=== PATIENT | female | born 1970 | race Caucasian/White ===

== ENCOUNTER → 2017-12-05 07:00 | Outpatient (CLI) | payer OTHER, SELFPAY | PROVIDERS: Visit Provider Nurse Practitioner Women's Health | DX: Z12.4 Encounter for screening for malignant neoplasm of cervix (principal) ==

== ENCOUNTER → 2017-12-22 15:05 | Outpatient (CLI) | payer OTHER, SELFPAY ==
--- NOTE | 2017-12-22 15:08 | BI_ITS ---
MAMMOGRAPHY - BILATERAL SCREENING REASON FOR EXAM: Female, 47 years old. Routine annual screening examination. PERTINENT HISTORY: Mother with breast cancer. TECHNIQUE: Digital bilateral breast claudia (3D mammographic acquisition) in the CC and MLO projections. 2-D mediolateral oblique (MLO) and craniocaudad (CC) views of both breasts were obtained. CAD: Full Field Digital Mammography with Computer Added Detection was performed. COMPARISON: Comparison is made with prior outside examination dated October 11, 2016. FINDINGS: Breast Composition: There are scattered areas of fibroglandular density. There are no dominant masses or suspicious calcifications. No other significant abnormalities are identified. There has been no significant change since the prior study. BI/SCREENING MAMM (CAD), BILAT IMPRESSION: Stable bilateral screening mammogram. Yearly follow-up mammogram recommended. (A) ASSESSMENT CATEGORY: BIRADS Category 1: Negative. A letter regarding these results will be sent to the patient by the facility within 30 days. Approximately 10% of breast cancers are not detected by mammography. A normal mammogram should not delay biopsy of a clinically suspicious abnormality. [id number] Electronically Signed: Konstantin Rogel MD at 8:32 EDT Tel [phone], Service support ,
== END ==
PROVIDERS: Family Provider Preventive Medicine Occupational Medicine; PCP Preventive Medicine Occupational Medicine; Visit Provider Nurse Practitioner Women's Health
DX: Z12.31 Encounter for screening mammogram for malignant neoplasm of breast (principal)
CPT/HCPCS: 77063; 77067

== ENCOUNTER → 2019-01-08 13:45 | Outpatient (CLI) | payer OTHER, SELFPAY ==
--- NOTE | 2019-01-08 13:48 | BI_ITS ---
MAMMOGRAPHY - BILATERAL SCREENING REASON FOR EXAM: Female, 48 years old. Routine annual screening examination. PERTINENT HISTORY: Mother with breast cancer. TECHNIQUE: Digital bilateral breast maria guadalupe (3D mammographic acquisition) in the CC and MLO projections. 2-D mediolateral oblique (MLO) and craniocaudad (CC) views of both breasts were obtained. CAD: Full Field Digital Mammography with Computer Added Detection was performed. COMPARISON: Comparison is made with prior study dated December 22, 2017. FINDINGS: Breast Composition: There are scattered areas of fibroglandular density. There are no dominant masses or suspicious calcifications. No other significant abnormalities are identified. There has been no significant change since the prior study. BI/SCREEN MAMM (CAD) W/MARIA GUADALUPE BILAT IMPRESSION: Stable bilateral screening mammogram. Yearly follow-up mammogram recommended. (A) ASSESSMENT CATEGORY: BIRADS Category 1: Negative. A letter regarding these results will be sent to the patient by the facility within 30 days. Approximately 10% of breast cancers are not detected by mammography. A normal mammogram should not delay biopsy of a clinically suspicious abnormality. [id number] Electronically Signed: Konstantin Rogel, at 15:02 EDT , Service support ,
== END ==
PROVIDERS: Family Provider Preventive Medicine Occupational Medicine; PCP Preventive Medicine Occupational Medicine; Referring Provider Nurse Practitioner Women's Health; Visit Provider Nurse Practitioner Women's Health
DX: Z12.31 Encounter for screening mammogram for malignant neoplasm of breast (principal); Z12.4 Encounter for screening for malignant neoplasm of cervix
CPT/HCPCS: 77063; 77067; 87624; 88175; G0145

== ENCOUNTER → 2020-01-30 08:31 | Outpatient (CLI) | payer OTHER, SELFPAY ==
[2019-01-08 14:12] VITALS: BMI 33.1
--- NOTE | 2020-01-30 08:31 | BI_ITS ---
MAMMOGRAPHY - BILATERAL SCREENING 3-D TOMOSYNTHESIS REASON FOR EXAM: Female, 49 years old. Routine screening PERTINENT HISTORY: FAM HX OF MOTHER @ AGE 60''S - NO PREV SURG''S. TECHNIQUE: 2-D mammograms and 3-D Tomosynthesis of the breast (s) were performed. CAD was performed. COMPARISON: 01/08/2019 FINDINGS: The breast composition is composed of scattered fibroglandular density. Scattered benign calcifications are seen. No dense spiculated masses or suspicious microcalcifications are identified. No architectural distortion is identified. There is no skin thickening or retraction. There has been no significant change since the prior study. BI/SCREEN MAMM (CAD) W/MARIA GUADALUPE BILAT IMPRESSION: No mammographic signs of malignancy. Routine yearly mammograms recommended. ASSESSMENT CATEGORY: BIRADS Category 1: Negative. A letter regarding these results will be sent to the patient by the facility within 30 days. FOLLOW UP RECOMMENDATION: Yearly follow up mammogram recommended. (A) Approximately 10% of breast cancers are not detected by mammography. A normal mammogram should not delay biopsy of a clinically suspicious abnormality. Electronically Signed: Azael Miranda MD at 10:03 EDT , Service support ,
[2020-02-05 21:51] LABS: HPV APTIMA, High Risk Positive (Negative)
== END ==
PROVIDERS: PCP Preventive Medicine Occupational Medicine; Referring Provider Nurse Practitioner Women's Health; Visit Provider Nurse Practitioner Women's Health
DX: Z12.31 Encounter for screening mammogram for malignant neoplasm of breast (principal); Z12.4 Encounter for screening for malignant neoplasm of cervix
CPT/HCPCS: 77063; 77067; 87624; 88175; G0145

== ENCOUNTER → 2021-02-01 10:39 | Outpatient (CLI) | payer OTHER, SELFPAY ==
[2020-03-17 15:04] VITALS: BMI 35.3
[2021-02-01 10:25] VITALS: BMI 36.1
--- NOTE | 2021-02-01 10:44 | BI_ITS ---
MAMMOGRAPHY - BILATERAL SCREENING REASON FOR EXAM: Female, 50 years old. Routine annual screening examination. PERTINENT HISTORY: Mother with breast cancer. TECHNIQUE: Digital bilateral breast maria guadalupe (3D mammographic acquisition) in the CC and MLO projections. 2-D mediolateral oblique (MLO) and craniocaudad (CC) views of both breasts were obtained. CAD: Full Field Digital Mammography with Computer Added Detection was performed. COMPARISON: Comparison is made with prior study of 01/30/2020 and 01/08/2019. FINDINGS: Breast Composition: There are scattered areas of fibroglandular density. There are no dominant masses or suspicious calcifications. Stable small benign appearing bilateral axillary nodes. No other significant abnormalities are identified. There has been no significant change since the prior study. BI/SCRN MAMM (CAD)W/MARIA GUADALUPE BILAT IMPRESSION: Stable bilateral screening mammogram. Yearly follow-up mammogram recommended. (A) ASSESSMENT CATEGORY: BIRADS Category 2: Benign. A letter regarding these results will be sent to the patient by the facility within 30 days. Approximately 10% of breast cancers are not detected by mammography. A normal mammogram should not delay biopsy of a clinically suspicious abnormality. [id number] Electronically Signed: Konstantin Rogel MD at 12:46 EDT , Service support ,
[2021-02-05 20:21] LABS: HPV APTIMA, High Risk Positive (Negative)
== END ==
PROVIDERS: PCP Preventive Medicine Occupational Medicine; Referring Provider Nurse Practitioner Women's Health; Visit Provider Nurse Practitioner Women's Health
DX: Z12.31 Encounter for screening mammogram for malignant neoplasm of breast (principal); Z12.4 Encounter for screening for malignant neoplasm of cervix
CPT/HCPCS: 77063; 77067; 87624; 88175; G0145

== ENCOUNTER → 2021-03-17 14:44 | Outpatient (CLI) | payer OTHER, SELFPAY ==
--- NOTE | 2021-03-17 | CER_PTH ---
PATIENT: NEHA MATIAS LOC: [facility] U#:[id number] AGE/SX: 55/F ROOM: RE03/17/[address]: Dr. Liza Westbrook MD : 1970 BED: DIS: SPEC #: [id number] RECD: 03/18/21 08:52 STATUS: MASHA VEE #: [id number] RACHEL: 03/17/21 00:[address]: Liza Westbrook DEPT: SURGICAL PATHOLOGY RECD BY: Luis Manuel Jordan ENTERED: 03/18/21 08:53 SP TYPE: CERV OTHR DR: Dr. Tima Medeiros DO Tissues: A - Uterine cervix, NOS B - Uterine cervix, NOS Procedures: Surgery Specimen Level IV HEADER OPERATION: Colposcopy PRE-OP DIAGNOSIS: LGSIL, HPV positive TISSUE SUBMITTED: Edith WESTFALL @ 10 o?clock MICROSCOPIC DIAGNOSIS A. Endocervix, curettings: Rare benign detached fragments of squamous mucosa. Rare strips of benign endocervix. B. Cervix at 10 o?clock, biopsy: Fibrinopurulent material present. See Comment. AM:am 03/19/21 COMMENT B. No squamous epithelium is present. Clinical correlation is suggested MICROSCOPIC DESCRIPTION Slides are reviewed. GROSS DESCRIPTION A. Received in formalin is one container labeled with the patient name and designated ECC. The specimen consists of light correia mucoid material measuring in aggregate 2 x 1 x <0.1cm. The specimen is totally submitted in one cassette. B .Received in formalin is one container labeled with the patient name and designated 10 o'clock. The specimen consists of light correia mucoid material measuring in aggregate 0.5 x 0.5 x <0.1cm. The specimen is totally submitted in one cassette. / AM:am 03/18/21 TC:5 CPT:[id number]
== END ==
PROVIDERS: PCP Preventive Medicine Occupational Medicine; Referring Provider Obstetrics & Gynecology; Visit Provider Obstetrics & Gynecology
DX: R87.612 Low grade squamous intraepithelial lesion on cytologic smear of cervix (LGSIL) (principal)
CPT/HCPCS: 88305

== ENCOUNTER → 2022-02-03 | Outpatient (CLI) | payer OTHER, SELFPAY ==
--- NOTE | 2022-02-03 07:27 | BI_ITS ---
MAMMOGRAPHY - BILATERAL SCREENING REASON FOR EXAM: Female, 52 years old. Routine annual screening examination. PERTINENT HISTORY: Mother with breast cancer. TECHNIQUE: Digital bilateral breast maria guadalupe (3D mammographic acquisition) in the CC and MLO projections. 2-D mediolateral oblique (MLO) and craniocaudad (CC) views of both breasts were obtained. CAD: Full Field Digital Mammography with Computer Added Detection was performed. COMPARISON: Comparison is made with prior study dated 02/01/2021 and 01/30/2020. FINDINGS: Breast Composition: There are scattered areas of fibroglandular density. There are no dominant masses or suspicious calcifications. Stable benign appearing bilateral axillary nodes. No other significant abnormalities are identified. There has been no significant change since the prior study. BI/SCRN MAMM (CAD)W/MARIA GUADALUPE BILAT IMPRESSION: Stable bilateral screening mammogram. Yearly follow-up mammogram recommended. (A) ASSESSMENT CATEGORY: BIRADS Category 2: Benign. A letter regarding these results will be sent to the patient by the facility within 30 days. Approximately 10% of breast cancers are not detected by mammography. A normal mammogram should not delay biopsy of a clinically suspicious abnormality. [id number] Electronically Signed: Konstantin Rogel MD at 8:22 EDT ,
[2022-02-03 09:03] LABS: Absolute Neutrophil Count 3.8 X10^3/uL (2.0-7.7); Basophil# 0.06 X10^3/uL; Eosinophil# 0.14 X10^3/uL; Eosinophils% 2.4 % (0-5); Hematocrit 40.2 % (37-47); Hemoglobin 13.5 g/dL (12.0-15.0); Lymphocyte % 23.8 % (19-41); Mean Corp Hgb Conc 33.6 g/dL (32-36); Mean Corpuscular Hgb 31.9 pg (27.0-32.0); Mean Platelet Vol. 9.6 fl (6.2-12.0); Monocyte# 0.44 X10^3/uL; Monocyte% 7.5 % (0-10); NRBC Flagged by Analyzer 0 % (0-5); Neutrophil # 3.84 X10^3/uL (2.7-7.7); Neutrophil % 65.1 % (47-70); Platelet Count 198 K/mm3 (150-450); RBC Distribution Width CV 13.1 % (11.6-14.6); RBC Distribution Width SD 45.7 fl (35.1-43.9); Red Blood Count 4.23 M/mm3 (4.2-5.4); White Blood Count 5.9 K/mm3 (4.4-11.0)
[2022-02-03 09:26] LABS: Vitamin D,25 Hydroxy 19.2 ng/mL
[2022-02-08 21:07] LABS: HPV Genotype 16, Aptima Negative (Negative)
[2022-02-08 21:50] LABS: HPV APTIMA, High Risk Positive (Negative); HPV Genotype 18,45 Aptima Negative (Negative)
== END | disposition home or self-care (01) ==
PROVIDERS: PCP Preventive Medicine Occupational Medicine; Referring Provider Obstetrics & Gynecology; Visit Provider Obstetrics & Gynecology
DX: Z12.31 Encounter for screening mammogram for malignant neoplasm of breast (principal); R53.83 Other fatigue; Z12.4 Encounter for screening for malignant neoplasm of cervix
CPT/HCPCS: 36415; 77063; 77067; 82306; 84443; 85025; 87624; 88175; G0145

== ENCOUNTER 2023-01-05 21:33 | Emergency (ER) | payer MEDICAID, SELFPAY ==
[2023-01-05 21:34] VITALS: BP 139/92; PULSE 84; RESP 16; TEMP 36.8; O2SAT 96; BMI 31.9
[2023-01-05] MEDS: Diphth,Pertuss(Acell),Tet Vac 0.5 ML Vial IM (22:46)
[2023-01-05] MEDS: Lidocaine/Epi/Tetracaine 50 ML 1 APPLIC TOPICAL (22:48)
--- NOTE | 2023-01-05 23:00 | RAD_ITS ---
STUDY: X-RAY - RIGHT CLAVICLE REASON FOR EXAM: Female, 52 years old. Injury/Pain TECHNIQUE: 2 view(s) of the clavicle. COMPARISON: FINDINGS: BONES: No fracture demonstrated. JOINTS: No dislocation. SOFT TISSUES: Unremarkable. RAD/Clavicle IMPRESSION: No evidence of fracture. Electronically Signed: Thi Casper MD at 23:26 EDT ,
--- NOTE | 2023-01-05 23:29 | EX.ED.GENINJ ---
HPI History of Present Illness Chief Complaint: Head Injury Informant: patient Onset/Context/Timing Onset: Today Mechanism/Context: Fall and Trip Quality of Pain: Dull Location: Forehead Worsened by: Nothing Relieved by: Nothing Narrative Narrative: Patient presents with a head injury that occurred today. Patient states she tripped and fell into the corner of a wall. Patient has a laceration across her forehead and into her eyebrow. Patient denies any loss of consciousness. Patient describes her pain as dull. Patient does not know when her last tetanus was. Patient denies any neck pain. Patient denies any other injuries. Patient denies any visual changes. Patient denies any nausea or vomiting. Patient denies any paresthesias or weakness. Tetanus Immunization: Unknown [facility] Medical History BRUCE I (cervical intraepithelial neoplasia I) LGSIL (low grade squamous intraepithelial dysplasia) Home Medications valsartan 160 mg tablet 160 mg PO DAILY 01/30/20 [History Last Taken Unknown] sertraline 100 mg tablet (Zoloft) 100 mg PO DAILY 10/13/20 [History Last Taken Unknown] norethindrone (contraceptive) 0.35 mg tablet (Deblitane) See Rx Instructions .Route .COMPLEX #84 tabs 08/26/22 [Rx Last Taken Unknown] Allergy/AdvReac Type Severity Reaction Status Date / Time amoxicillin Allergy Mild Other Verified 01/05/23 21:37 Family History Mother Breast cancer Father Cancer lung- smoker Surgical History H/O sinus surgery History of appendectomy History of loop electrosurgical excision procedure (LEEP) of cervix Social History Smoking Status: Heavy Smoker (>10/day) alcohol intake: current details: social substance use type: does not use caffeine: Yes what type of physical activity do you participate in: none seatbelt use: always do you feel safe at home: Yes additional social history: Single- D&S Distribution ROS ROS ED Constitutional Constitutional ED: Denies chills or fever(s) Eyes Eyes: Denies blurry vision or change in vision ENT ENT ED: Denies rhinorrhea or sore throat Cardiovascular Cardiovascular: Denies chest pain or palpitations Respiratory/Chest Respiratory/Chest: Denies cough or dyspnea Gastrointestinal Gastrointestinal: Denies nausea or vomiting Genitourinary Genitourinary ED: Denies dysuria or hematuria Musculoskeletal Musculoskeletal: Denies back pain or neck pain Integumentary Denies abscess or rash Neurologic Neurologic: Denies headache(s) or weakness Allergic/Immunologic Allergic/Immunologic ED: Denies mouth swelling or urticaria EXAM Physical Exam Const Vital Signs: 01/05/23 21:34 01/05/23 21:45 Temperature 98.3 F Temperature Source Temporal Pulse Rate 84 Respiratory Rate 16 Respiratory Effort Normal Respiratory Depth Normal Respiratory Pattern Normal Blood Pressure 139/92 H Blood Pressure Mean 107 Pulse Ox 96 Oxygen Delivery Method Room Air Room Air Positive well nourished and well developed General Appearance ED: well developed and NAD HEENT HEENT Narrative: There is an 7 cm full-thickness linear laceration over the forehead and right eyebrow area. There is moderate gapping of the wound margins. There is no bony crepitance or step-off. There are no foreign bodies noted. There is mild bleeding noted. trauma Eyes PERRL and EOMs intact bilaterally Neck full ROM Extremity normal to inspection and full ROM Extremity Narrative: There is mild tenderness over the right clavicle. There is no edema or ecchymosis. There is no bony crepitance or step-off. Range of motion of the right shoulder was limited in all motions secondary to pain. General Extremety ED: Negative for deformity General Extremity: Negative for deformity Neuro oriented x3, CN's II-XII intact bilaterally, moves all extremities, no focal motor deficits and no sensory deficits noted [place] Coma Scale: document GCS findings Spontaneous Obeys Commands Oriented 15 Sensorium / Orientation: alert Motor Exam: strength 5/5 throughout Psych mental status grossly normal PROC Procedures Lacerations Forehead: Length: 7 cm Depth: Sub Q Shape: Linear Prep: Sterile Conditions and Chlorhexadine Laceration repair: Local, Skin sutures (17), Subcutaneous sutures (5) and Wound explored Irrigated (ml): 100 Number of Sutures/[place]: 22 Suture Information: Vicryl (5 subcutaneous simple 5-0 Vicryl), Ethilon (17 simple interrupted 5-0 Ethilon), Simple and 5-0 MDM MDM MDM Narrative Medical decision making narrative: Differential diagnosis includes closed head injury, forehead laceration, concussion, and clavicle fracture. X-rays of the right clavicle will be obtained to assess for clavicle fracture. Radiography Diagnostic Testing: Clinical Impression(s) from Imaging Studies Clavicle X-Ray 01/05/23 23:00 IMPRESSION: No evidence of fracture. Electronically Signed: Thi Casper MD at 23:26 EDT , X-rays of the right clavicle were obtained. There are 2 views. On my independent interpretation, there is no acute fracture or dislocation. Radiologist also interpreted the x-rays and agrees. Treatment and Re-Evaluation Narrative: LET gel was applied to the wound. The wound was cleaned and irrigated with copious amounts of normal saline. The wound was anesthetized with 1% lidocaine with epinephrine locally. The wound was closed with 5 simple interrupted #5-0 Vicryl subcutaneous sutures and 17 simple interrupted #5-0 Ethilon sutures under sterile technique. Patient tolerated the procedure well. Bacitracin dressing was applied. Patient was given head injury instructions. Patient was given wound care instructions. Patient was instructed to keep the wound clean and dry. Patient was instructed to follow-up with her primary care physician in 7 days for wound recheck and suture removal. Discharge Plan Triage Chief Complaint: Head Injury ED Provider: Nic Whitfield Dx/Rx/DC Orders Clinical Impression: Closed head injury, Forehead laceration Instructions: ED Head Injury (Adult), ED FACIAL LACERATION Suture Tape, ED Laceration Minimize Scars Prescriptions: No Action valsartan 160 mg tablet 160 mg PO DAILY sertraline [Zoloft] 100 mg tablet 100 mg PO DAILY norethindrone (contraceptive) [Deblitane] 0.35 mg tablet See Rx Instructions .ROUTE .COMPLEX Qty: 84 11RF Dose Instruction: TAKE 1 TABLET BY MOUTH DAILY start day 1 (ONE) OF menstrual cycle Rx Instructions: TAKE 1 TABLET BY MOUTH DAILY start day 1 (ONE) OF menstrual cycle Primary Care Provider: Tima Medeiros Referrals: Tima Medeiros DO [Primary Care Provider] - 7 Days for suture removal Disposition Disposition: Home, Self Care
[2023-01-06] MEDS: Lidocaine 1% /Epi 1:100 (20ml) 20 ML Vial INFILT (01:10)
== END 2023-01-06 01:10 | disposition home or self-care (01) ==
PROVIDERS: Emergency Provider Emergency Medicine; PCP Preventive Medicine Occupational Medicine; Visit Provider Emergency Medicine
DX: S01.81XA Laceration without foreign body of other part of head, initial encounter (principal); F17.200 Nicotine dependence, unspecified, uncomplicated; Z23 Encounter for immunization; W01.0XXA Fall on same level from slipping, tripping and stumbling without subsequent striking against object, initial encounter
CPT/HCPCS: 12014; 73000; 90471; 90715; 99283

== ENCOUNTER 2023-01-13 10:26 | Emergency (ER) | payer MEDICAID, SELFPAY ==
[2023-01-13 10:27] VITALS: BP 120/85; PULSE 71; RESP 14; TEMP 36.6; O2SAT 98; BMI 32.0
--- NOTE | 2023-01-13 11:14 | EDS_ITS ---
HPI History of Present Illness Chief Complaint: Suture Remv Informant: patient Onset/Context/Timing Onset: Weeks (1) Quality: Healing laceration Location: Forehead Worsened by: Nothing Relieved by: Nothing Narrative Narrative: Patient presents for suture removal. Patient had sutures placed in a forehead laceration 1 week ago. Patient denies any bleeding. Patient denies any discharge or drainage. Patient denies any redness or swelling. Patient denies any fevers or chills. Patient states the wound has been healing well without any complications. Patient denies any nausea or vomiting. Patient denies any other concussion symptoms. 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) Home Medications valsartan 160 mg tablet 160 mg PO DAILY 01/30/20 [History Last Taken Unknown] sertraline 100 mg tablet (Zoloft) 100 mg PO DAILY 10/13/20 [History Last Taken Unknown] norethindrone (contraceptive) 0.35 mg tablet (Deblitane) See Rx Instructions .Route .COMPLEX #84 tabs 08/26/22 [Rx Last Taken Unknown] Allergy/AdvReac Type Severity Reaction Status Date / Time amoxicillin Allergy Mild Other Verified 01/13/23 10:27 Family History Mother Breast cancer Father Cancer lung- smoker Surgical History H/O sinus surgery History of appendectomy History of loop electrosurgical excision procedure (LEEP) of cervix Social History Smoking Status: Heavy Smoker (>10/day) alcohol intake: current details: social substance use type: does not use caffeine: Yes what type of physical activity do you participate in: none seatbelt use: always do you feel safe at home: Yes additional social history: Single- D&S Distribution ROS ROS ED Constitutional Constitutional ED: Denies chills or fever(s) Eyes Eyes: Denies blurry vision or change in vision ENT ENT ED: Denies rhinorrhea or sore throat Cardiovascular Cardiovascular: Denies chest pain or palpitations Respiratory/Chest Respiratory/Chest: Denies cough or dyspnea Gastrointestinal Gastrointestinal: Denies nausea or vomiting Genitourinary Genitourinary ED: Denies dysuria or hematuria Musculoskeletal Musculoskeletal: Denies back pain or neck pain Integumentary Denies abscess or rash Neurologic Neurologic: Denies headache(s) or weakness Allergic/Immunologic Allergic/Immunologic ED: Denies mouth swelling or urticaria EXAM Physical Exam Const Vital Signs: 01/13/23 10:27 Temperature 98 F Temperature Source Temporal Pulse Rate 71 Respiratory Rate 14 Blood Pressure 120/85 H Blood Pressure Mean 96 Pulse Ox 98 Oxygen Delivery Method Room Air Positive well nourished and well developed General Appearance ED: well developed and NAD HEENT Reports moist mucous membranes Eyes PERRL and EOMs intact bilaterally Neck supple and no JVD Neuro oriented x3, CN's II-XII intact bilaterally and no sensory deficits noted Sensorium / Orientation: alert Motor Exam: strength 5/5 throughout Psych mental status grossly normal Skin Skin Narrative: There is a healing laceration over the forehead. Sutures are in place. There is no erythema or edema noted. There is no induration noted. There is no bleeding noted. There is no bony crepitance or step-off. There is no tenderness noted. MDM MDM MDM Narrative Medical decision making narrative: 17 sutures were removed without difficulty. The wound was cleaned and dressed. Patient was instructed to continue using Neosporin or bacitracin ointment to the area. Patient was instructed to follow-up with her primary care physician in 5 to 7 days. Patient understood and was agreeable with the plan. All questions were answered. Discharge Plan Triage Chief Complaint: Suture Remv ED Provider: Nic Whitfield Dx/Rx/DC Orders Clinical Impression: Encounter for removal of sutures, Forehead laceration Instructions: Sutr or Stap Removal Prescriptions: No Action valsartan 160 mg tablet 160 mg PO DAILY sertraline [Zoloft] 100 mg tablet 100 mg PO DAILY norethindrone (contraceptive) [Deblitane] 0.35 mg tablet See Rx Instructions .ROUTE .COMPLEX Qty: 84 11RF Dose Instruction: TAKE 1 TABLET BY MOUTH DAILY start day 1 (ONE) OF menstrual cycle Rx Instructions: TAKE 1 TABLET BY MOUTH DAILY start day 1 (ONE) OF menstrual cycle Primary Care Provider: Tima Medeiros Referrals: Tima Medeiros DO [Primary Care Provider] - 1-2 Weeks Disposition Disposition: Home, Self Care
== END 2023-01-13 11:28 | disposition home or self-care (01) ==
PROVIDERS: Emergency Provider Emergency Medicine; PCP Preventive Medicine Occupational Medicine; Visit Provider Emergency Medicine
DX: Z48.02 Encounter for removal of sutures (principal); F17.200 Nicotine dependence, unspecified, uncomplicated
CPT/HCPCS: 99282

== ENCOUNTER → 2024-06-04 | Outpatient (CLI) | payer BC, SELFPAY ==
--- NOTE | 2024-06-04 14:29 | BI_ITS ---
MAMMOGRAPHY - BILATERAL SCREENING 3-D TOMOSYNTHESIS REASON FOR EXAM: Female, 54 years old. Screening for breast cancer PERTINENT HISTORY: No significant family history. TECHNIQUE: 2-D mammograms and 3-D Tomosynthesis of the breast (s) were performed. CAD was performed. COMPARISON: 02/03/2022 FINDINGS: The breast composition is composed of scattered fibroglandular density. Scattered benign calcifications are seen. No dense spiculated masses or suspicious microcalcifications are identified. No architectural distortion is identified. There is no skin thickening or retraction. There has been no significant change since the prior study. BI/SCRN MAMM (CAD)W/MARIA GUADALUPE BILAT IMPRESSION: No mammographic signs of malignancy. Routine yearly mammograms recommended. ASSESSMENT CATEGORY: BIRADS Category 1: Negative. A letter regarding these results will be sent to the patient by the facility within 30 days. FOLLOW UP RECOMMENDATION: Yearly follow up mammogram recommended. (A) Approximately 10% of breast cancers are not detected by mammography. A normal mammogram should not delay biopsy of a clinically suspicious abnormality. Electronically Signed: Spencer Mejía MD at 15:56 EST ,
[2024-06-15 03:07] LABS: HPV APTIMA, High Risk Positive (Negative); HPV Genotype 16, Aptima Negative (Negative); HPV Genotype 18,45 Aptima Negative (Negative)
== END | disposition home or self-care (01) ==
LOC: OPBI 14:29
PROVIDERS: PCP Preventive Medicine Occupational Medicine; Referring Provider Nurse Practitioner Women's Health; Visit Provider Nurse Practitioner Women's Health
DX: Z12.31 Encounter for screening mammogram for malignant neoplasm of breast (principal)
CPT/HCPCS: 77063; 77067; 87624; 88175; G0145